=== PATIENT | male | born 1995 | race Caucasian/White ===

== ENCOUNTER 2019-10-12 20:53 | Emergency (ER) | payer BC ==
[~2019-10-12] VITALS: Ht 182.9 cm; Wt 170.2 kg
[2019-10-12 22:31] LABS: ALANINE AMINOTRANSFERASE 23 U/L (12-78); ANION GAP 6 mmol/L (5-15); CALCIUM 7.8 mg/dL (8.5-10.1); CHLORIDE 109 mmol/L (98-107); CREATININE 1.16 mg/dL (0.7-1.3)
[2019-10-12 22:35] LABS: ALKALINE PHOSPHATASE 51 U/L (45-117); BILIRUBIN,TOTAL 0.3 mg/dL (0.2-1.0); TOTAL PROTEIN 4.5 g/dL (6.4-8.2); TROPONIN I < 0.015 ng/mL (0.000-0.045)
[2019-10-12 22:55] LABS: BASOPHILS # (AUTO) 0.03 x10^3/uL (0-0.1); BASOPHILS % (AUTO) 0 % (0-1); EOSINOPHILS # (AUTO) 0.41 x10^3/uL (0-0.4); EOSINOPHILS % (AUTO) 5 % (1-7); LYMPHOCYTES % (AUTO) 25 % (22-44); MD SCAN; MEAN CORPUSCULAR HEMOGLOBIN 27.8 pg (27.5-34.5); MEAN CORPUSCULAR HGB CONC 33.3 g/dL (33.2-36.2); MEAN CORPUSCULAR VOLUME 83.6 fL (81-97); MEAN PLATELET VOLUME 9.8 fL (7.4-10.4); MONOCYTES # (AUTO) 0.54 x10^3/uL (0.2-0.8); MONOCYTES % (AUTO) 7 % (2-9); NEUTROPHILS # (AUTO) 4.91 x10^3/uL (1.8-6.8); NEUTROPHILS % (AUTO) 62 % (42-75); PLATELET COUNT 277 x10^3/uL (130-400); RED BLOOD COUNT 5.29 x10^6/uL (4.38-5.82); RED CELL DISTRIBUTION WIDTH 13.8 % (9.4-14.8)
--- NOTE | 2019-10-12 23:05 | NUR ---
pt to room from lobby
[2019-10-12 23:32] VITALS: BP 137/82
--- NOTE | 2019-10-13 | NUR ---
PT RESTING COMFORTABLY. FAMILY AT BEDSIDE. NO NEEDS AT THIS TIME. UA SENT TO LAB.
[2019-10-13 00:03] LABS: MICROSCOPIC INDICATED
[2019-10-13 00:40] LABS: CULTURE INDICATED? YES
== END 2019-10-13 01:27 | disposition home or self-care (01) ==
LOC: EDBD 20:53 → ED 10-13 01:02
DX: E03.9 Hypothyroidism, unspecified (principal); R60.0 Localized edema; E03.4 Atrophy of thyroid (acquired); R80.9 Proteinuria, unspecified; N04.9 Nephrotic syndrome with unspecified morphologic changes; E88.09 Other disorders of plasma-protein metabolism, not elsewhere classified
CPT/HCPCS: 36415; 71046; 80053; 81001; 83880; 84439; 84443; 84484; 85025; 87086; 93005; 99285